=== PATIENT | male | born 1990 | race American Indian/Alaskan Native ===

== ENCOUNTER 2017-06-15 22:58 | Inpatient (IN) | payer SELFPAY ==
[2017-06-16] MEDS ORDERED: ASPIRIN PO ONE (00:55)
--- NOTE | 2017-06-16 01:22 | Emergency Department Report ---
ED Syncope HPI - General Chief Complaint: Syncope Stated Complaint: COLD SX Time Seen by Provider: 06/16/17 01:07 Source: patient, family Exam Limitations: no limitations - History of Present Illness Initial Comments: Patient patient is a 47-year-old male that presents to emergency room with complaints of syncope. Patient's family at bedside. Patient's family then stated that the syncopal episode and loss of consciousness was for a prolonged period of approximately 3-4 minutes.. Patient found to be hypotensive. Patient denies hitting his head but however did fall into the batH tub and was found draped over the side of the bathtub facedown. Patient complains of abdominal pain and lower back pain. Patient denies headache. Patient denies blurry vision. Patient denies fever and chills. Patient denies chest pain. Patient denies breath. Patient states that the abdominal pain is generalized and is worse with movement. Timing/Prior Episodes: no prior history, single episode today Precipitating Factors: Positive: none, injury Context: standing Loss of Consciousness: prolonged (minutes) Current Symptoms: back to normal - Related Data Allergies/Adverse Reactions: Allergies No Known Allergies Allergy (Unverified 06/16/17 00:48) ED Review of Systems ROS: Stated complaint: COLD SX Other details as noted in HPI Comment: All other systems reviewed and negative Constitutional: denies: chills, fever Eyes: denies: eye pain, eye discharge, vision change ENT: denies: ear pain, throat pain Respiratory: denies: cough, shortness of breath, wheezing Cardiovascular: denies: chest pain, palpitations Endocrine: no symptoms reported Gastrointestinal: abdominal pain. denies: nausea, diarrhea Genitourinary: denies: urgency, dysuria Musculoskeletal: back pain. denies: joint swelling, arthralgia Skin: denies: rash, lesions Neurological: other ( prolonged syncope). denies: headache, weakness, paresthesias Psychiatric: denies: anxiety, depression Hematological/Lymphatic: denies: easy bleeding, easy bruising ED Past Medical Hx - Past Medical History Previous Medical History?: Yes Hx Asthma: Yes - Surgical History Past Surgical History?: No - Family History Family history: hypertension - Social History Smoking Status: Former Smoker Substance Use Type: None ED Physical Exam - General Limitations: No Limitations General appearance: alert, in no apparent distress - Head Head exam: Present: atraumatic, normocephalic - Eye Eye exam: Present: normal appearance - ENT ENT exam: Present: mucous membranes moist - Neck Neck exam: Present: normal inspection - Respiratory Respiratory exam: Present: normal lung sounds bilaterally. Absent: respiratory distress - Cardiovascular Cardiovascular Exam: Present: regular rate, normal rhythm. Absent: systolic murmur, diastolic murmur, rubs, gallop - GI/Abdominal GI/Abdominal exam: Present: soft, normal bowel sounds - Rectal Rectal exam: Present: deferred - Extremities Exam Extremities exam: Present: normal inspection - Back Exam Back exam: Present: normal inspection - Neurological Exam Neurological exam: Present: alert, oriented X3 - Psychiatric Psychiatric exam: Present: normal affect, normal mood - Skin Skin exam: Present: warm, dry, intact, normal color. Absent: rash ED Course Vital Signs 06/16/17 06/16/17 06/16/17 00:42 00:48 01:00 Temperature 100.9 F H 100.6 F H Pulse Rate 70 70 65 Respiratory 18 70 H 18 Rate Blood Pressure 85/48 85/48 O2 Sat by Pulse 100 100 Oximetry 06/16/17 01:15 Temperature Pulse Rate 60 Respiratory 13 Rate Blood Pressure 106/61 O2 Sat by Pulse 100 Oximetry - Reevaluation(s) Reevaluation #1: Patient to be admitted. Patient agrees to admission. Discussed all lab results were patient. 06/16/17 03:39 Reevaluation #2: Patient's blood pressure is low, will given him a liter of fluid. 06/16/17 05:10 ED Medical Decision Making - Lab Data Result diagrams: 06/16/17 01:06 06/16/17 01:06 - EKG Data -: EKG Interpreted by Me EKG shows normal: sinus rhythm, axis, intervals, QRS complexes Rate: bradycardia - EKG Data Interpretation: no acute changes - Radiology Data Radiology results: report reviewed, image reviewed interpreted by me: Normal limit chest x-ray CT head and abdomen/pelvis within normal limits. - Differential Diagnosis syncope. Cardiogenic syncope. hypotension. Arrhythmia. Dehydration Critical Care Time: Yes Critical care attestation.: If time is entered above; I have spent that time in minutes in the direct care of this critically ill patient, excluding procedure time. Critical Care Time: 35 minutes for critical care time ED Disposition Clinical Impression: Hypotension, Syncopal episodes, Prolonged loss of consciousness Disposition: DC-09 OP ADMIT IP TO THIS HOSP Is pt being admited?: Yes Does the pt Need Aspirin: No Condition: Critical Time of Disposition: 03:32
--- NOTE | 2017-06-16 01:40 | XRay Report ---
FINAL REPORT EXAM: XR CHEST 1V AP HISTORY: Shortness of breath TECHNIQUE: A single view of the chest was submitted. FINDINGS: The heart size and mediastinum appear normal. The lungs are clear. There is no evidence of congestion. Pleural fluid is not seen. The bones and soft tissues appear well maintained. IMPRESSION: Normal chest.
--- NOTE | 2017-06-16 01:45 | Cat Scan Report ---
FINAL REPORT EXAM: CT HEAD/BRAIN WO CON HISTORY: syncopy/ hit head in tub TECHNIQUE: Routine axial imaging was obtained of the brain without IV contrast. FINDINGS: The ventricular system is appropriate in size and is symmetric. There is no evidence of acute stroke or hemorrhage. The basal cisterns appear normal. There is no evidence of skull fracture. The sinuses reveal minimal dependent secretions in the right maxillary sinus. The mastoid air cells are well pneumatized. IMPRESSION: No acute intracranial process.
--- NOTE | 2017-06-16 01:48 | Cat Scan Report ---
FINAL REPORT EXAM: CT ABDOMEN PELVIS WO CON HISTORY: abd pain ( EPIGASTRIC) and low bp, syncope TECHNIQUE: Routine axial imaging was obtained of the abdomen and pelvis without oral or IV contrast. Sagittal and coronal reconstructions were reviewed. FINDINGS: The lung bases are clear. Pleural fluid is not seen. The liver, gallbladder, pancreas, spleen, and adrenal glands appear normal. The kidneys show no evidence of stones or hydronephrosis. The bowel loops are normal in caliber. There is no evidence of free fluid or adenopathy. The appendix is not seen. In the pelvis the prostate gland and bladder appear normal. The skeletal structures are unremarkable. IMPRESSION: No acute process in the abdomen and pelvis.
[2017-06-16 02:02] LABS: Hematocrit 44.2 % (35.5-45.6); Hemoglobin 14.6 gm/dl (11.8-15.2); Mean Corpuscular HGB Conc 33 % (32-34); Mean Corpuscular Hemoglobin 27 pg (28-32); Mean Corpuscular Volume 82 fl (84-94); Platelet Count 145 K/mm3 (140-440); Red Blood Count 5.38 M/mm3 (3.65-5.03); Red Cell Distribution Width 14.2 % (13.2-15.2)
[2017-06-16 02:15] LABS: BUN/Creatinine Ratio 9; Blood Urea Nitrogen 10 mg/dL (9-20); Calcium 8.7 mg/dL (8.4-10.2); Hemolysis Index 8
[2017-06-16 04:45] LABS: Basophils % (Manual) 0 % (0.0-1.8); Eosinophils % (Manual) 0 % (0.0-4.3); Total Cells Counted 100
[2017-06-16 04:46] LABS: Anisocytosis 1+; Hypochromasia 1+
[2017-06-16] MEDS ORDERED: NACL 0.9% 1000 ML 1,000 ML IV ONE (05:09)
[2017-06-16 05:48] LABS: Bilirubin,Urine NEG (Negative); Blood,Urine NEG (Negative); Color,Urine Yellow (Yellow); Hyaline Casts,Urine 9 /LPF; Mucus,Urine 2+ /HPF; Nitrite,Urine NEG (Negative); Protein,Urine <15 mg/dL mg/dL (Negative)
[2017-06-16 05:53] LABS: Amphetamine Screen,Urine PRESUMPTIVE NEGATIVE; Benzodiazepines Screen,Urine PRESUMPTIVE NEGATIVE; Cannabinoid Screen,Urine PRESUMPTIVE NEGATIVE; Cocaine Screen,Urine PRESUMPTIVE NEGATIVE; Methadone Screen,Urine PRESUMPTIVE NEGATIVE; Opiate Screen,Urine PRESUMPTIVE NEGATIVE
--- NOTE | 2017-06-16 07:35 | Progress Note ---
Assessment and Plan Assessment and plan: --Syncope --Autonomic imbalance --Bradycardia --Hypotension --Elevated d-dimers --DVT prophylaxis Hospitalist Physical - Constitutional Vitals: Temp Pulse Resp BP Pulse Ox 100.6 F H 54 L 20 96/49 100 06/16/17 00:48 06/16/17 06:45 06/16/17 06:45 06/16/17 06:45 06/16/17 06:45 Results - Labs CBC & Chem 7: 06/16/17 01:06 06/16/17 01:06 Labs: Laboratory Last Values WBC 5.2 K/mm3 (4.5-11.0) 06/16/17 01:06 RBC 5.38 M/mm3 (3.65-5.03) H 06/16/17 01:06 Hgb 14.6 gm/dl (11.8-15.2) 06/16/17 01:06 Hct 44.2 % (35.5-45.6) 06/16/17 01:06 MCV 82 fl (84-94) L 06/16/17 01:06 MCH 27 pg (28-32) L 06/16/17 01:06 MCHC 33 % (32-34) 06/16/17 01:06 RDW 14.2 % (13.2-15.2) 06/16/17 01:06 Plt Count 145 K/mm3 (140-440) 06/16/17 01:06 [place] % (Auto) Platform Worker 06/16/17 01:06 Add Manual Diff Complete 06/16/17 01:06 Total Counted 100 06/16/17 01:06 Seg Neuts % (Manual) 54.0 % (40.0-70.0) 06/16/17 01:06 Band Neutrophils % 19.0 % 06/16/17 01:06 Lymphocytes % (Manual) 15.0 % (13.4-35.0) 06/16/17 01:06 Reactive Lymphs % (Man) 0 % 06/16/17 01:06 Monocytes % (Manual) 12.0 % (0.0-7.3) H 06/16/17 01:06 Eosinophils % (Manual) 0 % (0.0-4.3) 06/16/17 01:06 Basophils % (Manual) 0 % (0.0-1.8) 06/16/17 01:06 Metamyelocytes % 0 % 06/16/17 01:06 Myelocytes % 0 % 06/16/17 01:06 Promyelocytes % 0 % 06/16/17 01:06 Blast Cells % 0 % 06/16/17 01:06 Nucleated RBC % Not Reportable 06/16/17 01:06 Seg Neutrophils # Man 2.8 K/mm3 (1.8-7.7) 06/16/17 01:06 Band Neutrophils # 1.0 K/mm3 06/16/17 01:06 Lymphocytes # (Manual) 0.8 K/mm3 (1.2-5.4) L 06/16/17 01:06 Abs React Lymphs (Man) 0.0 K/mm3 06/16/17 01:06 Monocytes # (Manual) 0.6 K/mm3 (0.0-0.8) 06/16/17 01:06 Eosinophils # (Manual) 0.0 K/mm3 (0.0-0.4) 06/16/17 01:06 Basophils # (Manual) 0.0 K/mm3 (0.0-0.1) 06/16/17 01:06 Metamyelocytes # 0.0 K/mm3 06/16/17 01:06 Myelocytes # 0.0 K/mm3 06/16/17 01:06 Promyelocytes # 0.0 K/mm3 06/16/17 01:06 Blast Cells # 0.0 K/mm3 06/16/17 01:06 WBC Morphology Not Reportable 06/16/17 01:06 Hypersegmented Neuts Not Reportable 06/16/17 01:06 Hyposegmented Neuts Not Reportable 06/16/17 01:06 Hypogranular Neuts Not Reportable 06/16/17 01:06 Smudge Cells Not Reportable 06/16/17 01:06 Toxic Granulation Not Reportable 06/16/17 01:06 Toxic Vacuolation Not Reportable 06/16/17 01:06 Dohle Bodies Not Reportable 06/16/17 01:06 Pelger-Huet Anomaly Not Reportable 06/16/17 01:06 Angus Rods Not Reportable 06/16/17 01:06 Platelet Estimate Appears normal 06/16/17 01:06 Clumped Platelets Not Reportable 06/16/17 01:06 Plt Clumps, EDTA Not Reportable 06/16/17 01:06 Large Platelets Not Reportable 06/16/17 01:06 Giant Platelets Not Reportable 06/16/17 01:06 Platelet Satelliting Not Reportable 06/16/17 01:06 Plt Morphology Comment Not Reportable 06/16/17 01:06 RBC Morphology Not Reportable 06/16/17 01:06 Dimorphic RBCs Not Reportable 06/16/17 01:06 Polychromasia Not Reportable 06/16/17 01:06 Hypochromasia 1+ 06/16/17 01:06 Poikilocytosis Not Reportable 06/16/17 01:06 Anisocytosis 1+ 06/16/17 01:06 Microcytosis Not Reportable 06/16/17 01:06 Macrocytosis Not Reportable 06/16/17 01:06 Spherocytes Not Reportable 06/16/17 01:06 Pappenheimer Bodies Not Reportable 06/16/17 01:06 Sickle Cells Not Reportable 06/16/17 01:06 Target Cells Not Reportable 06/16/17 01:06 Tear Drop Cells Not Reportable 06/16/17 01:06 Ovalocytes Not Reportable 06/16/17 01:06 Helmet Cells Not Reportable 06/16/17 01:06 [place] Bodies Not Reportable 06/16/17 01:06 Aylett Rings Not Reportable 06/16/17 01:06 Dyer Cells Not Reportable 06/16/17 01:06 Bite Cells Not Reportable 06/16/17 01:06 Crenated Cell Not Reportable 06/16/17 01:06 Elliptocytes Not Reportable 06/16/17 01:06 Acanthocytes (Spur) Not Reportable 06/16/17 01:06 Rouleaux Not Reportable 06/16/17 01:06 Hemoglobin C Crystals Not Reportable 06/16/17 01:06 Schistocytes Not Reportable 06/16/17 01:06 Malaria parasites Not Reportable 06/16/17 01:06 Deepak Bodies Not Reportable 06/16/17 01:06 Hem Pathologist Commnt No 06/16/17 01:06 D-Dimer 358.36 ng/mlDDU (0-234) H 06/16/17 04:21 Sodium 137 mmol/L (137-145) 06/16/17 01:06 Potassium 4.4 mmol/L (3.6-5.0) 06/16/17 01:06 Chloride 98.0 mmol/L (98-107) 06/16/17 01:06 Carbon Dioxide 25 mmol/L (22-30) 06/16/17 01:06 Anion Gap 18 mmol/L 06/16/17 01:06 BUN 10 mg/dL (9-20) 06/16/17 01:06 Creatinine 1.1 mg/dL (0.8-1.5) 06/16/17 01:06 Estimated GFR > 60 ml/min 06/16/17 01:06 BUN/Creatinine Ratio 9 % 06/16/17 01:06 Glucose 109 mg/dL (75-100) H 06/16/17 01:06 Lactic Acid 1.20 mmol/L (0.7-2.0) 06/16/17 02:31 Calcium 8.7 mg/dL (8.4-10.2) 06/16/17 01:06 Troponin T < 0.010 ng/mL (0.00-0.029) 06/16/17 06:41 Urine Bilirubin Neg (Negative) 06/16/17 Unknown Urine RBC (Auto) 3.0 /HPF (0.0-6.0) 06/16/17 Unknown U Epithel Cells (Auto) 1.0 /HPF (0-13.0) 06/16/17 Unknown Urine Opiates Screen Presumptive negative 06/16/17 Unknown Urine Methadone Screen Presumptive negative 06/16/17 Unknown Ur Barbiturates Screen Presumptive negative 06/16/17 Unknown Ur Phencyclidine Scrn Presumptive negative 06/16/17 Unknown Ur Amphetamines Screen Presumptive negative 06/16/17 Unknown U Benzodiazepines Scrn Presumptive negative 06/16/17 Unknown Urine Cocaine Screen Presumptive negative 06/16/17 Unknown U Marijuana (THC) Screen Presumptive negative 06/16/17 Unknown Drugs of Abuse Note Disclamer 06/16/17 Unknown
[2017-06-16 07:55] LABS: Creatine Kinase MB < 1.0 ng/mL (0.0-4.0)
[2017-06-16] MEDS ORDERED: NACL 0.9% 1000 ML 1,000 ML IV SCH (08:00)
[2017-06-16] MEDS ORDERED: NACL ONE (08:07)
--- NOTE | 2017-06-16 08:59 | Cat Scan Report ---
CTA CHEST: HISTORY: Syncope, elevated d-dimer, evaluate for pulmonary embolus. COMPARISON: none. TECHNIQUE: Helical CT in 1.25mm intervals following IV contrast. Pulmonary embolus protocol. Sagittal and coronal reformatted images. Rotational MIP images. FINDINGS: Contrast bolus is satisfactory. No pulmonary embolus is identified. Thyroid gland: Normal. Tracheobronchial tree: Normal. Esophagus: Normal. Heart: Normal. Pericardium: Normal. Mediastinum: Normal. Lung Murphy: normal. Pleural Spaces: Normal. Musculoskeletal: Normal. IMPRESSION: No evidence for pulmonary embolus. Unremarkable CT chest with contrast.
[2017-06-16] MEDS ORDERED: PEPCID PO SCH (10:00)
[2017-06-16 11:40] LABS: Creatine Kinase MB < 1.0 ng/mL (0.0-4.0)
[2017-06-16 15:07] VITALS: BP 106/56
[2017-06-16] MEDS ORDERED: MOTRIN PO ONE (15:50)
[2017-06-16] MEDS ORDERED: MOTRIN ONE (16:04)
--- NOTE | 2017-06-16 16:06 | History and Physical Report ---
History of Present Illness Date of examination: 06/16/17 Date of admission: 06/16/17 06:50 Chief complaint: Syncope episode History of present illness: Thank you 27-year-old -[place] male patient with no significant past medical history presented to the emergency room history of syncopal episode Patient reports that he passed out about 2-4 minutes, denies knowledge of any seizure activity, no bladder or bowel incontinence, Never had similar complaints in the past At the time of my evaluation patient denies chest pain or shortness of breath Denies headache or dizziness. No blurring of vision The emergency room patient found to be hypotensive with mild improvement with IV fluids Denies head injury The patient reports that he was told when he was a child that he had cardiac arrhythmia, did not have any problems. Initial workup with CT scan was negative Mild elevated d-dimer , a CT angiogram of the chest to rule out PE is requested mild bradycardia with heart rate in 50s and 60s Past History Past Medical History: No medical history Past Surgical History: No surgical history Social history: lives with family, alcohol abuse (social), full code. denies: smoking, prescription drug abuse Family history: hypertension Medications and Allergies Allergies Allergy/AdvReac Type Severity Reaction Status Date / Time No Known Allergies Allergy Unverified 06/16/17 00:48 Home Medications Medication Instructions Recorded Confirmed Last Taken Type No Known Home Medications [No 06/16/17 06/16/17 Unknown History Reported Home Medications] Active Meds: Active Medications Famotidine (Pepcid) 10 mg PO BID [facility] Last Admin: 06/16/17 11:03 Dose: 10 mg Sodium Chloride (Nacl 0.9% 1000 Ml) 1,000 mls @ 100 mls/hr IV DIRECT [facility] Review of Systems Constitutional: no weight loss, no weight gain, no fever, no chills Ears, nose, mouth and throat: other (upper respiratory symptoms), no nasal congestion, no nasal discharge Cardiovascular: syncope, no chest pain, no orthopnea Respiratory: no cough, no shortness of breath Gastrointestinal: no nausea, no vomiting Genitourinary Male: no dysuria, no flank pain Musculoskeletal: no myalgias, no arthritis Integumentary: no rash, no lesions Neurological: syncope Psychiatric: no anxiety, no depression Endocrine: no cold intolerance, no heat intolerance, no polydipsia, no polyuria Hematologic/Lymphatic: no easy bruising, no easy bleeding Allergic/Immunologic: no urticaria, no allergic rhinitis Exam - Constitutional Vitals: Temp Pulse Resp BP Pulse Ox 100.6 F H 58 L 12 106/56 100 06/16/17 00:48 06/16/17 15:00 06/16/17 15:00 06/16/17 15:00 06/16/17 14:30 General appearance: Present: no acute distress, well-nourished - EENT Eyes: Present: PERRL, EOM intact - Neck Neck: Present: supple, normal ROM - Respiratory Respiratory effort: normal Respiratory: negative: rales, rhonchi, wheezing - Cardiovascular Rhythm: regular Heart Sounds: Present: S1 & S2 - Extremities Extremities: no ischemia, No edema - Abdominal General gastrointestinal: Present: soft, non-tender, non-distended, normal bowel sounds - Integumentary Integumentary: Present: clear, warm - Musculoskeletal Musculoskeletal: strength equal bilaterally - Psychiatric Psychiatric: appropriate mood/affect, cooperative - Neurologic Neurologic: CNII-XII intact, moves all extremities Results - Labs CBC & Chem 7: 06/16/17 01:06 06/16/17 01:06 Labs: Abnormal lab results 06/16/17 06/16/17 06/16/17 Range/Units 01:06 01:06 04:21 RBC 5.38 H (3.65-5.03) M/mm3 MCV 82 L (84-94) fl MCH 27 L (28-32) pg Monocytes % (Manual) 12.0 H (0.0-7.3) % Lymphocytes # (Manual) 0.8 L (1.2-5.4) K/mm3 D-Dimer 358.36 H (0-234) ng/mlDDU Glucose 109 H (75-100) mg/dL Total Creatine Kinase (55-170) units/L 06/16/17 06/16/17 Range/Units 07:27 11:03 RBC (3.65-5.03) M/mm3 MCV (84-94) fl MCH (28-32) pg Monocytes % (Manual) (0.0-7.3) % Lymphocytes # (Manual) (1.2-5.4) K/mm3 D-Dimer (0-234) ng/mlDDU Glucose (75-100) mg/dL Total Creatine Kinase 197 H 206 H (55-170) units/L Assessment and Plan --Syncope: No new episodes since presenting to the emergency room, fall precautions Supportive care with IV fluids, check orthostatic vitals Syncope workup as needed. 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
== END 2017-06-16 16:21 | disposition left against medical advice (07) | DRG 312 ==
LOC: ED 22:58 → 4A 06-16 06:50
PROVIDERS: ADMIT Internal Medicine; ATTEND Internal Medicine
DX: R55 Syncope and collapse (principal); J45.909 Unspecified asthma, uncomplicated; I95.9 Hypotension, unspecified; G90.8 Other disorders of autonomic nervous system; R00.1 Bradycardia, unspecified; Z82.49 Family history of ischemic heart disease and other diseases of the circulatory system
CPT/HCPCS: 36415; 70450; 71045; 71275; 74176; 80048; 80307; 81001; 82140; 82550; 82553; 84484; 85007; 85025; 85379; 93005; 93010; 99291; J7030; Q9967